=== PATIENT | male | born 1975 | race Caucasian/White ===

== ENCOUNTER 2019-10-15 16:17 | Emergency (ER) | payer MEDICAID ==
[~2019-10-15] VITALS: Ht 177.8 cm; Wt 77.5 kg
[2019-10-15 16:47] VITALS: BP 127/81
[2019-10-15] MEDS ORDERED: PLEASE ENTER HEIGHT AND WEIGHT MC SCH (16:51)
[2019-10-15] MEDS ORDERED: CEFTRIAXONE 250 MG IM ONE (17:00)
[2019-10-15] MEDS ORDERED: AZITHROMYCIN 500 MG TABLET PO ONE (17:00)
[2019-10-15] MEDS ORDERED: AZITHROMYCIN 500 MG TABLET ONE (17:42)
[2019-10-15] MEDS ORDERED: LIDOCAINE-MPF 1%, 2ML ONE (17:42)
[2019-10-15] MEDS ORDERED: CEFTRIAXONE 250 MG ONE (17:42)
--- NOTE | 2019-10-15 17:49 | NUR ---
PT MEDICATED PER MAR
== END 2019-10-15 18:20 | disposition home or self-care (01) ==
LOC: ED 17:17
DX: A74.9 Chlamydial infection, unspecified (principal); A54.9 Gonococcal infection, unspecified; F17.200 Nicotine dependence, unspecified, uncomplicated
CPT/HCPCS: 36415; 86592; 87491; 87591; 96372; 99283; J0696